=== PATIENT | female | born 1985 | race Caucasian/White ===

== ENCOUNTER 2020-11-10 07:07 | Day surgery (SDC) | payer MEDICAID ==
[~2020-11-10] VITALS: Ht 170.2 cm; Wt 72.6 kg
[2020-11-10 08:25] LABS: HCG,QUAL RESULT NEGATIVE (NEGATIVE)
[2020-11-10] MEDS ORDERED: MEPERIDINE 100 MG INJ. 100 MG/ML VIAL ONE (08:34)
[2020-11-10] MEDS ORDERED: SIMETHICONE 40 MG/0.6 ML ML ONE (08:34)
[2020-11-10] MEDS ORDERED: MIDAZOLAM HCL 5 MG/5 ML VIAL ONE (08:35)
[2020-11-10] MEDS ORDERED: MEPERIDINE 100 MG INJ. 100 MG/ML VIAL IV ONE (08:38)
[2020-11-10] MEDS ORDERED: MIDAZOLAM HCL 5 MG/5 ML VIAL IVP ONE ×4 (08:38→08:52)
[2020-11-10 13:46] VITALS: BP_SYST 105
== END 2020-11-10 10:00 | disposition home or self-care (01) ==
LOC: SDS 07:07 → SMU 07:10 → SDS 10:00
PROVIDERS: ATTEND Internal Medicine Gastroenterology
DX: R19.4 Change in bowel habit (principal); K63.5 Polyp of colon; R10.10 Upper abdominal pain, unspecified; R19.8 Other specified symptoms and signs involving the digestive system and abdomen; K64.8 Other hemorrhoids; K21.9 Gastro-esophageal reflux disease without esophagitis; Z79.899 Other long term (current) drug therapy
CPT/HCPCS: 45380; 45385; 84703; 88305; 99152; 99153; G0378; J2175; J2250

== ENCOUNTER 2021-06-26 06:49 | Day surgery (SDC) | payer MEDICAID ==
[~2021-06-26] VITALS: Ht 170.2 cm; Wt 68.0 kg
[2021-06-26 07:08] LABS: HCG,QUAL RESULT NEGATIVE (NEGATIVE)
[2021-06-26] MEDS ORDERED: MIDAZOLAM HCL 5 MG/5 ML VIAL ONE ×2 (07:41→08:15)
[2021-06-26] MEDS ORDERED: MEPERIDINE 100 MG INJ. 100 MG/ML VIAL ONE (07:41)
[2021-06-26 12:06] VITALS: BP_SYST 128
== END 2021-06-26 10:10 | disposition home or self-care (01) ==
LOC: SDS 06:49 → SMU 06:55 → SDS 10:10
PROVIDERS: ATTEND Internal Medicine Gastroenterology
DX: R10.12 Left upper quadrant pain (principal); K29.50 Unspecified chronic gastritis without bleeding; K29.80 Duodenitis without bleeding; R19.8 Other specified symptoms and signs involving the digestive system and abdomen; Z79.899 Other long term (current) drug therapy; Z20.822 Contact with and (suspected) exposure to COVID-19
CPT/HCPCS: 36415 ×2; 43239; 84703; 87081; 87426; 87635; 88305; 88312; 88313; 99152; G0378; J2175; J2250